=== PATIENT | male | born 1990 | race African-American/Black ===

== ENCOUNTER 2020-10-01 20:57 | Inpatient (IN) | payer MEDICAID ==
[~2020-10-01] VITALS: Ht 182.9 cm; Wt 75.6 kg
[~2020-10-01 20:57] MED LIST: CIPR-173 PO
[2020-10-01 21:58] LABS: Basophils # (auto) 0 10 ^3/uL (0-0.2); Basophils % (auto) 0.5 % (0.0-2.0); Eosinophils # (auto) 0 10 ^3/uL (0-0.8); Eosinophils % (auto) 0.3 % (0.0-7.0); Hemoglobin 17.6 g/dL (13.5-17.5); Lymphocytes # (auto) 1.4 10 ^3/uL (0.4-5.4); Mean Corpuscular Hemoglobin 32.8 pg (28.0-32.0); Mean Corpuscular Hgb Conc. 34.5 g/dL (32.0-36.0); Monocytes # (auto) 0.6 10 ^3/uL (0-1.3); Monocytes % (auto) 6.6 % (0.0-12.0); Neutrophils # (auto) 6.6 10 ^3/uL (1.6-8.6); Neutrophils % (auto) 76.6 % (37.0-80.0); Nucleated Red Blood Cells % 0.1 %; Red Blood Cells 5.37 10^6/uL (4.5-5.90); Red Cell Distribution Width 12.8 % (11.8-14.3); White Blood Cell 8.6 10^3/uL (4.4-10.8)
[2020-10-01 22:05] LABS: Urine Bacteria NONE SEEN /hpf (None Seen); Urine Blood Negative /uL (Negative); Urine Mucus FEW (None Seen); Urine Specific Gravity 1.035 (1.001-1.035); Urine WBC 1 /hpf (0 - 3)
[2020-10-01 22:16] LABS: Alanine Aminotransferase 36 U/L (16-61); Albumin 4.2 g/dL (3.4-5.0); Anion Gap 13 (5-15); Aspartate Aminotransferase 47 U/L (15-37); Blood Alcohol < 3.0 mg/dL (0-5); Blood Urea Nitrogen 11 mg/dL (7-18); Calcium 9.3 mg/dL (8.5-10.1); Carbon Dioxide 24 mmol/L (21-32); Chloride 101 mmol/L (98-107); Glucose 83 mg/dL (74-106); Lipase 1254 U/L (73-393); Sodium 138 mmol/L (136-145)
[2020-10-01 22:18] LABS: Amphetamine Screen, Urine POSITIVE (NEGATIVE); Barbiturate Scree,Urine NEGATIVE (NEGATIVE); Benzodiazephine Screen, Urine NEGATIVE (NEGATIVE); Cannabinoid Screen, Urine NEGATIVE (NEGATIVE); Cocaine Screen, Urine POSITIVE (NEGATIVE); Opiate Scree,Urine NEGATIVE (NEGATIVE); Phencyclidine Screen, Urine NEGATIVE (NEGATIVE)
[2020-10-01 22:18] LABS: Alkaline Phosphatase 77 U/L (45-117); Bilirubin, Total 0.7 mg/dL (0.2-1.0); GFR African American 113 mL/min; GFR Non-African American 93 mL/min; Total Protein 8.7 g/dL (6.4-8.2)
[2020-10-02] MEDS ORDERED: IOHEXOL 300 MG/ML 100ML BOTTLE IJ ONE (01:56)
[2020-10-02] MEDS ORDERED: SODIUM CHLORIDE 0.9% 2,000 ML IV ONE (02:00)
[2020-10-02] MEDS ORDERED: ONDANSETRON HCL 4 MG/2 ML VIAL IV PRN (05:15)
[2020-10-02] MEDS ORDERED: SODIUM CHLORIDE 0.9% 1,000 ML IV SCH (05:15)
[2020-10-02] MEDS ORDERED: ACETAMINOPHEN 325 MG TAB PO PRN (05:15)
[2020-10-02] MEDS ORDERED: HYDROcodone-ACET 5/325MG TAB PO PRN (05:15)
[2020-10-02] MEDS ORDERED: TEMAZEPAM 15 MG CAP PO PRN (05:15)
[2020-10-02] MEDS: MORPHINE SULFATE 4 MG/ML SYR/VIAL IV PRN ×3 (05:54→20:28)
[2020-10-02 07:28] LABS: BUN/Creatinine Ratio 9.4; Calcium 8.6 mg/dL (8.5-10.1); Potassium 4.1 mmol/L (3.5-5.1)
[2020-10-02] MEDS ORDERED: PANTOPRAZOLE 40 MG/10 ML VIAL INJ IV SCH (10:00)
[2020-10-02] MEDS: LACTATED RINGER'S 1,000 ML IV SCH ×2 (12:05→18:25)
[2020-10-02] MEDS ORDERED: FAMOTIDINE (10MG/ML) 2ML VL IV ONE (12:09)
[2020-10-02 14:43] VITALS: BP 160/99
[2020-10-02] MEDS ORDERED: cloNIDine HCL 0.1 MG TAB PO PRN (14:45)
[2020-10-02 16:20] VITALS: BP 161/105
[2020-10-02] MEDS: chlordiazePOXIDE HCL 25 MG CAP PO SCH (17:00)
[2020-10-02 22:00] VITALS: BP 150/92
[2020-10-03] VITALS (7 sets, daily range): BP systolic 126–148; BP diastolic 68–89
[2020-10-03] MEDS: chlordiazePOXIDE HCL 25 MG CAP PO SCH ×5 (00:06→23:17)
[2020-10-03] MEDS: LACTATED RINGER'S 1,000 ML IV SCH ×4 (01:05→21:39)
[2020-10-03 06:38] LABS: Basophils # (auto) 0.1 10 ^3/uL (0-0.2); Basophils % (auto) 0.5 % (0.0-2.0); Eosinophils # (auto) 0.2 10 ^3/uL (0-0.8); Eosinophils % (auto) 1.8 % (0.0-7.0); Hematocrit 46.4 % (41.0-53.0); Lymphocytes # (auto) 1.6 10 ^3/uL (0.4-5.4); Lymphocytes % (auto) 11.8 % (10.0-50.0); Mean Corpuscular Hgb Conc. 34.4 g/dL (32.0-36.0); Mean Corpuscular Volume 96.1 fL (80.0-100.0); Monocytes # (auto) 0.7 10 ^3/uL (0-1.3); Monocytes % (auto) 5.4 % (0.0-12.0); Neutrophils # (auto) 10.6 10 ^3/uL (1.6-8.6); Neutrophils % (auto) 80.5 % (37.0-80.0); Nucleated Red Blood Cells % 0.1 %; Red Blood Cells 4.83 10^6/uL (4.5-5.90); White Blood Cell 13.2 10^3/uL (4.4-10.8)
[2020-10-03 06:55] LABS: Potassium 3.7 mmol/L (3.5-5.1)
[2020-10-03 07:10] LABS: Bilirubin, Total 0.7 mg/dL (0.2-1.0); Calcium 8.7 mg/dL (8.5-10.1); Total Protein 7.3 g/dL (6.4-8.2)
[2020-10-03] MEDS: MORPHINE SULFATE 4 MG/ML SYR/VIAL IV PRN (09:23)
[2020-10-03] MEDS: FAMOTIDINE (10MG/ML) 2ML VL IV SCH (09:24)
[2020-10-04 05:12] VITALS: BP 138/80
[2020-10-04 05:51] LABS: Basophils # (auto) 0.1 10 ^3/uL (0-0.2); Basophils % (auto) 0.6 % (0.0-2.0); Eosinophils # (auto) 0.4 10 ^3/uL (0-0.8); Eosinophils % (auto) 3.9 % (0.0-7.0); Hematocrit 39.8 % (41.0-53.0); Hemoglobin 13.8 g/dL (13.5-17.5); Lymphocytes # (auto) 1.6 10 ^3/uL (0.4-5.4); Lymphocytes % (auto) 14.3 % (10.0-50.0); Mean Corpuscular Hemoglobin 32.9 pg (28.0-32.0); Mean Corpuscular Hgb Conc. 34.6 g/dL (32.0-36.0); Mean Corpuscular Volume 95.2 fL (80.0-100.0); Monocytes # (auto) 0.9 10 ^3/uL (0-1.3); Monocytes % (auto) 7.8 % (0.0-12.0); Neutrophils # (auto) 8.2 10 ^3/uL (1.6-8.6); Neutrophils % (auto) 73.4 % (37.0-80.0); Red Blood Cells 4.18 10^6/uL (4.5-5.90); Red Cell Distribution Width 12.4 % (11.8-14.3); White Blood Cell 11.2 10^3/uL (4.4-10.8)
[2020-10-04] MEDS: LACTATED RINGER'S 1,000 ML IV SCH ×2 (05:53→09:57)
[2020-10-04] MEDS: chlordiazePOXIDE HCL 25 MG CAP PO SCH ×2 (05:54→12:18)
[2020-10-04 06:23] LABS: Potassium 3.2 mmol/L (3.5-5.1)
[2020-10-04 06:28] LABS: Albumin 2.4 g/dL (3.4-5.0); BUN/Creatinine Ratio 7.5; Calcium 8.6 mg/dL (8.5-10.1)
[2020-10-04 06:30] LABS: Bilirubin, Total 0.8 mg/dL (0.2-1.0); Total Protein 6.5 g/dL (6.4-8.2)
[2020-10-04 08:00] VITALS: BP 122/67
[2020-10-04] MEDS: FAMOTIDINE (10MG/ML) 2ML VL IV SCH (09:57)
[2020-10-04] MEDS ORDERED: POTASSIUM CHL 20 Meq TABLET PO ONE (10:15)
[2020-10-04 12:53] VITALS: BP 147/104
[2020-10-04 13:00] VITALS: BP 147/88
== END 2020-10-04 14:21 | disposition home or self-care (01) | DRG 282 ==
LOC: ER 20:59 → OVERFLOW 21:00 → CENTRAL 10-02 15:38
PROVIDERS: ADMIT Nurse Practitioner; ATTEND Internal Medicine
DX: K85.20 Alcohol induced acute pancreatitis without necrosis or infection (principal); Z20.822 Contact with and (suspected) exposure to COVID-19; F15.10 Other stimulant abuse, uncomplicated; F17.210 Nicotine dependence, cigarettes, uncomplicated; I10 Essential (primary) hypertension; Y90.9 Presence of alcohol in blood, level not specified; F10.239 Alcohol dependence with withdrawal, unspecified
CPT/HCPCS: 36415; 74177; 80048; 80053; 80307; 80320; 81001; 82150; 83690; 84478; 85025; 87426; 96361; 96374; 96375; C9113; G0378; J2405; J3490